=== PATIENT | male | born 1965 | race Caucasian/White ===

== ENCOUNTER 2022-04-23 16:20 | Inpatient (IN) ==
--- NOTE | 2022-04-23 16:33 | ED Triage Note ---
Date of Service April 23, 2022 History of Present Illness This patient was briefly evaluated while in triage. An abbreviated physical exam was performed. This patient is a 56-year-old Male with past medical history of hypertension who presents to the ED for evaluation of cough/illness for past 5+weeks. Had outpatient workup, CT shows extensive PE and pneumonia. He reports some shortness of breath, but denies chest pain. Denies leg pain or swelling. Physical Exam CONSTITUTIONAL: No acute distress. Well appearing. RESPIRATORY: Diminished bases, scattered wheezes more on left. Nonlabored breathing. Equal expansion bilaterally. CARDIOVASCULAR: Regular rate and rhythm with no murmurs, rubs or gallops. Normal peripheral perfusion. No peripheral edema. GASTROINTESTINAL: Soft, nontender NEUROLOGIC: Alert and oriented X 4 with normal affect. Initial orders for labs and / or imaging were placed and patient was placed in the waiting area until a bed is available. Please see further documentation for the full ED course.
[2022-04-23 18:03] LABS: Hematocrit (blood only) 47.6 % (42.0-52.0); Hemoglobin 15.5 g/dl (14.0-18.0); Mean Corpuscular Hemoglobin 29.6 pg (25.0-34.0); Mean Corpuscular Hgb Conc 32.6 g/dL (32.0-36.0); Mean Platelet Volume 8.8 fL (9.4-12.4); Platelet Count 258 K/uL (130-400); RDW Coefficient of Variation 13.2 % (11.5-14.5); RDW Standard Deviation 44.2 fL (36.4-46.3); Red Blood Count 5.23 M/uL (4.70-6.10)
[2022-04-23 18:18] LABS: Albumin Globulin Ratio 1.1 (0.9-2); Albumin Level 4.5 gm/dl (3.4-5.0); BUN Creatinine Ratio 23.3 (10-20); Bilirubin,Total 0.6 mg/dl (0.2-1.0); Calcium 10.5 mg/dl (8.5-10.1); Creatinine Clr Calc Pharmacy 73.2 ml/min; Est GFR (African American) 68.3 ml/min; Est GFR (Non-African American) 58.9 ml/min; Globulin 4.1 gm/dl (2.5-4.0); Potassium 4.6 mmol/L (3.5-5.1); Total Protein 8.6 gm/dl (6.0-8.3)
[2022-04-23 18:20] LABS: Influenza A virus by PCR Negative (Neg); Influenza B virus by PCR Negative (Neg); RSV by PCR Negative (Neg); SARS CoV2 RNA(COVID-19) Ceph NEGATIVE (Negative)
[2022-04-23 18:39] LABS: Partial Thromboplastin Time 28.8 Seconds (21.0-31.0); Prothrombin Time 10.3 Seconds (9.0-12.0)
--- NOTE | 2022-04-23 18:42 | XRay Report ---
XR chest 1V portable HISTORY: Chest pain, nonspecific COMPARISON: Chest CTA 04/23/2022. FINDINGS: No pneumothorax. No pleural effusions. The cardiac silhouette is normal in size. There are patchy bibasilar airspace opacities again noted. The upper lung zones are clear. No evidence for pulm onary edema. IMPRESSION: No change in the patchy bibasilar airspace opacities. This could be due to the patient's known pulmon miguelina emboli or a pneumonia. ACT 112: Negative or not required by law. Electronically signed by: Juan David Phillip M.D. 04/23/2022 6:41 PM
--- NOTE | 2022-04-23 18:53 | Emergency Department Note ---
History of Present Illness General Chief complaint: Illness Stated complaint: BLOODCLOT IN LING Time Seen by Provider: 04/23/22 18:35 Source: patient, RN notes reviewed and old records reviewed Mode of arrival: ambulatory Limitations: no limitations History of Present Illness This patient comes in after being diagnosed with bilateral PEs. He started getting sick about 4 and half weeks ago he had fever chills headache in his right sikhism he was COVID and flu test that was negative he continued with temporal headache and had a high sed rates and a temporal artery biopsy and started on steroids he says everything is gotten better except for his cough he denies any headache or fever chills recently they have been tapering off his steroids over the weekend his cough got worse so he saw his doctor today his D- dimer was elevated so they did a CAT scan of his chest and it showed bilateral PEs. He does not feel short of breath except for when he exerts himself. Home Medications Medication Instructions Recorded Confirmed Type amlodipine 10 mg tablet 10 mg PO QAM 01/19/22 04/23/22 History hydrochlorothiazide 12.5 mg tablet 12.5 mg PO QAM 01/19/22 04/23/22 History prednisone 10 mg tablet 0 mg PO QAM 04/06/22 04/23/22 History acetaminophen 500 mg tablet 1,000 mg PO DIRECTED PRN Pain 04/23/22 04/23/22 History (Tylenol Extra Strength) azithromycin 250 mg tablet 250 mg PO DAILY cough 04/23/22 04/23/22 History fluticasone fur. 200 mcg-umeclid 1 inh inhalation DAILY 04/23/22 04/23/22 History 62.5 mcg-vilant 25 mcg inhalat.powder (Trelegy Ellipta) ibuprofen 200 mg tablet 600 mg PO DIRECTED PRN Pain 04/23/22 04/23/22 History Allergies Allergy/AdvReac Type Severity Reaction Status Date / Time Penicillins AdvReac Intermediate DIARRHEA, Verified 04/23/22 20:18 NAUSEA/VOMITING Past Med/Surg History Medical History Benign essential hypertension Cough CXR 04/06/22 - NO FINDINGS Elevated C-reactive protein (CRP) Elevated sed rate History of anesthesia problem "seems to wake up during procedures" History of COVID-19 01/06/22, home test, not hosp; cough,body aches, chills, fever, "cold" symptoms>took paxlovid for 3 days until it "made him sick">resolved. Hypoxia Plantar wart of left foot Temporal arteritis SUSPECTED, REASON FOR UPCOMING PROCEDURE HAS RHEUMATOLOGY JESSICA 04/06/22 Urinary frequency Wheeze Surgical History H/O Mohs micrographic surgery for skin cancer nose H/O sinus surgery 1982 H/O vasectomy H/O ventral hernia repair (01/30/22) Ventral hernia repair. Dr. Grewal 01/30/2022 History of knee surgery 2010 History of temporal artery biopsy (04/13/22) Right Temporal Artery Biopsy(Right) - Wolfgang Estrella, Hx of colonoscopy 2016 S/P nasal surgery 1982 Family History Mother Hypertension Cancer Breast cancer Father Rheumatic fever Sister Breast cancer Social History Smoking Status: Never smoker Second Hand Exposure: No; Do You Dip or Chew Tobacco: No; Tobacco Cessation Education Requested by Patient: No Hx Alcohol Use: No Hx Substance Use: No Preferred Language: Lithuanian Communication Ability: Effective Chart Reader Required: No Beliefs That Will Affect Care: None marital status: Current Living Situation: Family Current Living Situation Comment: lives in own home current occupational status: employed 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 How many Children do You have: 4 Other Information That Helps Us Care for You: No Feels Safe at Home: Yes Safety Concerns: Feels Safe At This Time caffeine: Yes during the past year weight has: remained stable Assistive Devices: None Review of Systems A total of 10 systems reviewed and were otherwise negative Physical Exam Vital Signs Vital Signs - 24 hr 04/23/22 16:30 04/23/22 18:30 04/23/22 18:28 Temperature 36.8 C Temperature Source Temporal Artery Scan Pulse Rate 94 H 75 80 Pulse Rate from SpO2 Sensor 78 Respiratory Rate 20 19 Respiratory Depth Normal Blood Pressure 147/101 H 158/106 H Blood Pressure Mean 116 123 Blood Pressure Position Sitting Pulse Oximetry 92 93 Oxygen Delivery Method Room Air Room Air Sepsis Recent Fever Within 48 Hours No Sepsis New/Unexplained Change in Mental Status No Sepsis Action Taken by Nursing No Action Required 04/23/22 18:30 04/23/22 19:20 04/23/22 19:30 Temperature Temperature Source Pulse Rate 80 71 68 Pulse Rate from SpO2 Sensor 79 71 68 Respiratory Rate 15 20 18 Respiratory Depth Blood Pressure 135/94 138/91 Blood Pressure Mean 107 106 Blood Pressure Position Pulse Oximetry 94 93 91 Oxygen Delivery Method Room Air Room Air Room Air Sepsis Recent Fever Within 48 Hours Sepsis New/Unexplained Change in Mental Status Sepsis Action Taken by Nursing General: Well developed well nourished in no acute distress, breathing comforta yoshi on room air. Normal speech HEENT: Normal cephalic atraumatic. Pupils are equal round and reactive to light. Extraocular movements are intact. Oropharynx is pink with moist mucous membranes. No swelling of the mouth lips or tongue. Neck: Supple with a midline trachea. No meningeal signs or stiffness, no JVD or bruits. No Stridor. Chest: Rhonchi to auscultation bilaterally. But no increased work of breathing. Heart: Regular rate and rhythm without murmurs or gallops. Abdomen: Soft nontender, nondistended without rebound guarding or rigidity. Extremities: No cyanosis clubbing or edema. No calf tenderness or assymetry Spine/Back. Non tender to palpation. No CVA tenderness Skin: Good turgor without rashes. Neurologic exam: Cranial nerves two through 12 are intact. Motor and sensation are intact and symmetrical throughout. Course Administered Medications Heparin Sodium/Dextrose (Heparin Sodium/Dextrose) 25,000 units in 500 mls @ 33 mls/hr IV .[id number] [facility]; Protocol Stop: 05/23/22 19:29 Last Admin: 04/23/22 20:50 Dose: 1,650 units/hr, 33 mls/hr Documented By: DAMON Co-signed By: KML Sodium Chloride (Nss 1000ml) 1,000 mls @ 125 mls/hr IV .Q8H [facility] Stop: 04/24/22 06:44 Last Admin: 04/23/22 23:27 Dose: 125 mls/hr Documented By: GHASSAN Discontinued Medications Heparin Sodium (Porcine) (Heparin Sod (Porcine) 1000 Unit/Ml) 1 units IV NOW ONE Stop: 04/23/22 19:24 Last Admin: 04/23/22 20:51 Dose: Not Given Documented By: DAMON Heparin Sodium (Porcine) (Heparin Ivp From [facility] Protocol (With Bolus)) 7,000 units IV NOW ONE Stop: 04/23/22 20:31 Last Admin: 04/23/22 20:50 Dose: 7,000 units Documented By: DAMON Co-signed By: ANGELA Ceftriaxone Sodium (Rocephin) 2,000 mg in 70 mls @ 140 mls/hr IV NOW STA Stop: 04/23/22 19:37 Last Infusion: 04/23/22 20:20 Dose: 0 mls/hr Documented By: Admin: 04/23/22 20:10 Dose: 140 mls/hr Documented By: DAMON Azithromycin 500 mg/ Dextrose 255 mls @ 125 mls/hr IV ONE ONE Stop: 04/24/22 01:02 Last Infusion: 04/24/22 01:48 Dose: 0 mls/hr Documented By: Admin: 04/23/22 23:28 Dose: 125 mls/hr Documented By: GHASSAN Medical Decision Making Differential Diagnosis PE, pneumonia, pneumothorax, cardiac disease, electrolyte or metabolic abnormality, sepsis, COVID Medical Records Attestation: I reviewed the patient's medical records. Laboratory Data Attestation: I reviewed the patient's lab results. 04/23/22 17:29 04/23/22 17:29 Lab Results 04/23/22 04/23/22 04/23/22 Range/Units 17:29 17:29 17:29 WBC 13.70 H (4.8-10.8) K/ul RBC 5.23 (4.70-6.10) M/uL Hgb 15.5 (14.0-18.0) g/dl Hct 47.6 (42.0-52.0) % MCV 91.0 (80.0-100.0) fL MCH 29.6 (25.0-34.0) pg MCHC 32.6 (32.0-36.0) g/dL RDW Std Deviation 44.2 (36.4-46.3) fL RDW Coeff of Jenna 13.2 (11.5-14.5) % Plt Count 258 (130-400) K/uL MPV 8.8 L (9.4-12.4) fL Immature Gran % (Auto) 1.2 % Neut % (Auto) 90.2 % Lymph % (Auto) 5.0 % [place] % (Auto) 3.5 % Eos % (Auto) 0.0 % Baso % (Auto) 0.1 % Neut # (Auto) 12.36 H (1.40-6.50) K/uL Lymph # (Auto) 0.68 L (1.2-3.4) K/uL [place] # (Auto) 0.48 (0.11-0.59) K/uL Eos # (Auto) 0.00 (0-0.50) K/uL Baso # (Auto) 0.02 (0-0.2) K/uL Immature Gran # (Auto) 0.16 (0.01-0.20) K/uL PT 10.3 (9.0-12.0) Seconds INR 1.0 (0.9-1.1) APTT 28.8 (21.0-31.0) Seconds PTT Ratio 1.0 Sodium 139 (136-145) mmol/L Potassium 4.6 (3.5-5.1) mmol/L Chloride 105 (98-107) mmol/L Carbon Dioxide 26 (21-32) mmol/L Anion Gap 8 (3-11) BUN 31 H (6-23) mg/dl Creatinine 1.33 (0.6-1.4) mg/dl Est Cr Clr Drug Dosing 73.2 ml/min Est GFR ( Amer) 68.3 ml/min Est GFR (Non-Af Amer) 58.9 ml/min BUN/Creatinine Ratio 23.3 H (10-20) Glucose 105 H (70-99(Fasting)) mg/dl Calcium 10.5 H (8.5-10.1) mg/dl Phosphorus 3.0 (2.5-4.9) mg/dl Magnesium 2.2 (1.7-2.4) mg/dl Total Bilirubin 0.6 (0.2-1.0) mg/dl AST 20 (13-39) U/L ALT 29 (7-52) U/L Alkaline Phosphatase 60 (34-104) U/L Troponin I High Sens 10.0 (0-20) pg/ml Total Protein 8.6 H (6.0-8.3) gm/dl Albumin 4.5 (3.4-5.0) gm/dl Globulin 4.1 H (2.5-4.0) gm/dl Albumin/Globulin Ratio 1.1 (0.9-2) Lipase 69 (11-82) U/L Imaging Data Attestation: I personally reviewed and interpreted this imaging study as follows: My Impression: Chest x-raythere are some bibasilar patchy opacities but no pneumothorax or CHF Radiologist's Impression: Chest X-Ray 04/23/22 16:35 XR chest 1V portable HISTORY: Chest pain, nonspecific COMPARISON: Chest CTA 04/23/2022. FINDINGS: No pneumothorax. No pleural effusions. The cardiac silhouette is normal in size. There are patchy bibasilar airspace opacities again noted. The upper lung zones are clear. No evidence for pulmonary edema. IMPRESSION: No change in the patchy bibasilar airspace opacities. This could be due to the patient's known pulmonary emboli or a pneumonia. ACT 112: Negative or not required by law. Electronically signed by: Juan David Phillip M.D. 04/23/2022 6:41 PM ECG Data Attestation: I personally reviewed and interpreted this ECG as follows: Indication: + chest pain Rate (beats per minute): 88 Rhythm: + normal sinus and + other (Poor baseline) ECG Intervals/blocks: + Normal QRS, + Normal QT and + Normal LA ECG Reeders: + Normal ECG ST segments: + Normal ST segments ECG Findings: + LVH; no PACs or no PVCs Comparison ECG Date: from (12/14/21) Change: no significant change MDM Narrative This patient comes in as described above. He was placed in room C10. Here for treatment and evaluation of bilateral PEs he looks well and is nonhypoxemic. I reviewed his work-up. He will need to come in. His EKG does not suggest any ischemic changes of white count is mildly elevated is possible he could have a pneumonia on top of this as well. He has multiple PEs otherwise been hemodynamically stable. I did order IV heparin bolus and hourly rate of heparin. I also ordered Rocephin for possible pneumonia as well. I did consult and further discussed the case with Dr. Montgomery who is the hospitalist and she saw the patient ER will be admitting for further inpatient treatment evaluation of his PE and pneumonia Continuous residential monitor: Orders placed in EMR for continuous residential monitor. Upon my evaluation the patient was reviewed normal sinus with a rate of 90. Impression & Plan Bilateral pulmonary embolism, Cough, Pneumonia, Lab test negative for COVID-19 virus Discharge Plan Visit Data Chief Complaint: Illness Stated Complaint: BLOODCLOT IN LING ED Provider: Puma Thomson Discharge Problem: Bilateral pulmonary embolism, Cough, Pneumonia, Lab test negative for COVID-19 virus Patient Disposition: Admitted As Inpatient Discharge Instructions Interventions: ED Discharge Assessment Last Done: 04/23/22 21:43 Cough Qualifiers: Cough type: subacute Qualified Code(s): R05.2 - Subacute cough Pneumonia Qualifiers: Pneumonia type: due to unspecified organism Laterality: unspecified laterality Lung location: unspecified part of lung Qualified Code(s): J18.9 - Pneumonia, unspecified organism
[2022-04-23] MEDS ORDERED: Heparin IV Adult Wt-Based Standard WITH Bolus Protocol IV STA (19:08)
[2022-04-23] MEDS ORDERED: cefTRIAXone SODIUM 2,000 MG/70 ML BAG IV STA (19:08)
[2022-04-23 19:16] LABS: Basophils # (auto) 0.02 K/uL (0-0.2); Basophils % (auto) 0.1 %; Immature Granulocytes # (auto) 0.16 K/uL (0.01-0.20); Immature Granulocytes % (auto) 1.2 %; Lymphocytes # (auto) 0.68 K/uL (1.2-3.4); Monocytes # (auto) 0.48 K/uL (0.11-0.59); Monocytes % (auto) 3.5 %; Neutrophils # (auto) 12.36 K/uL (1.40-6.50); Neutrophils % (auto) 90.2 %
[2022-04-23] MEDS ORDERED: HEPARIN SOD (PORCINE) 1000 UNIT/ML IV ONE (19:23)
--- NOTE | 2022-04-23 20:19 | History & Physical Report ---
Date of Service April 23, 2022 Assessment & Plan (1) Pulmonary emboli: Plan: Chino Moulton is a 56yo male with history of HTN presenting with extensive segmental and subsegmental PE in the right upper, middle and lower lobe pulmonary arteries and segmental PEs in the lingula. Patient presently HD stable, adequate oxygenation on room air. He has cough and pleuritic chest pain which has been improved with Tylenol and Ibuprofen at home. PESI score = 67 - Class II, Low risk. Normal shock index. Saturation is borderline low at 91% on room air. -Admit to medical with telemetry -Check 2D echo -Continue Heparin gtt -Tylenol as needed for pain -Robitussin as needed for cough (2) Pneumonia: Plan: Patient with dense LLL consolidation concerning for PNA - no PE at that location. He is presently afebrile. Mild leukocytosis - patient has been on Prednisone, however. No recent hospitalizations. -Ceftriaxone 2gm IV daily -Azithromycin -Robitussin as needed -Tylenol as needed -Incentive spirometry q1hr PRN (3) Hypertension: Plan: Blood pressure well controlled, presently 138/91 -Continue Amlodipine -Hold HCTZ as patient appears dry on labs -NSS at 125mL/hr x 1 liter -Encourage PO intake F/E/N - NSS at 125mL/hr x 1L, check Mg and PO4 x 1 and replete as needed Ppx - Heparin gtt Code - Full Disp - Med Tele History of Present Illness Chief Complaint: cough, PATEL Primary Care Provider: Ruy Dye MD Chino Moulton is a 56yo male with history of HTN presenting with pulmonary emboli and concern for pneumonia. Patient began feeling ill on March 26. He had a fever, headache, nasal congestion, mild cough, body aches and nausea. He contacted his PCP and had Covid and Flu testing which was NEGATIVE. His cough worsened over the next 2-3 days. He then developed a severe right sided temporal headache. He had an ESR performed which was elevated at 71. Due to concern for possible temporal arteritis, he was seen by Rheumatology and had a right temporal artery biopsy performed on 04/13/22 which was NEGATIVE. Patient was started on a 60mg Prednisone taper. His cough subsequently worsened. He reports that over the last several days he has been coughing a lot more. The cough is moist and he is bringing up some yellow sputum. He has some pleuritic chest pain as well as some back pain associated with the cough. He reports dyspnea on exertion. He notified his PCP today 04/23/22 and was found to have an elevated D-dimer. He had a CTA of the chest performed outpatient which revealed fairly extensive segmental and subsegmental PE in right upper, middle and lower lobe pulmonary arteries as well as segmental PE in the branches of the lingula. The CT also noted dense left basilar airspace consolidation. Patient presently reports that the nausea, PATRICIO and congestion have largely resolved. He has not had a fever for over two weeks. He has no chest pain or syncope. In the ER he is afebrile, HD stable. Blood pressure has been 119-158 / 80-106, stable respiratory status with saturations ranging 90-94% on room air. ER Course: Heparin bolus and drip ordered - not yet initiated Ceftriaxone 2gm IV - not yet given Allergies Allergy/AdvReac Type Severity Reaction Status Date / Time Penicillins AdvReac Intermediate DIARRHEA, Verified 04/23/22 20:18 NAUSEA/VOMITING Home Medications Medication Instructions Recorded Confirmed Type amlodipine 10 mg tablet 10 mg PO QAM 01/19/22 04/23/22 History hydrochlorothiazide 12.5 mg tablet 12.5 mg PO QAM 01/19/22 04/23/22 History prednisone 10 mg tablet 0 mg PO QAM 04/06/22 04/23/22 History Unknown Steroid Inhaler 1 inh inhalation DIRECTED 04/23/22 04/23/22 History acetaminophen 500 mg tablet 1,000 mg PO DIRECTED PRN Pain 04/23/22 04/23/22 History (Tylenol Extra Strength) azithromycin 250 mg tablet 250 mg PO DAILY cough 04/23/22 04/23/22 History ibuprofen 200 mg tablet 600 mg PO DIRECTED PRN Pain 04/23/22 04/23/22 History Past Med/Surg History Medical History Benign essential hypertension Cough CXR 04/06/22 - NO FINDINGS Elevated C-reactive protein (CRP) Elevated sed rate History of anesthesia problem "seems to wake up during procedures" History of COVID-19 01/06/22, home test, not hosp; cough,body aches, chills, fever, "cold" symptoms>took paxlovid for 3 days until it "made him sick">resolved. Hypoxia Plantar wart of left foot Temporal arteritis SUSPECTED, REASON FOR UPCOMING PROCEDURE HAS RHEUMATOLOGY JESSICA 04/06/22 Urinary frequency Wheeze Surgical History H/O Mohs micrographic surgery for skin cancer nose H/O sinus surgery 1982 H/O vasectomy H/O ventral hernia repair (01/30/22) Ventral hernia repair. Dr. Grewal 01/30/2022 History of knee surgery 2010 History of temporal artery biopsy (04/13/22) Right Temporal Artery Biopsy(Right) - Wolfgang Estrella DO Hx of colonoscopy 2016 S/P nasal surgery 1982 Family History Mother Hypertension Cancer Breast cancer Father Rheumatic fever Sister Breast cancer Social History Smoking Status: Never smoker Second Hand Exposure: No; Hx Alcohol Use: No Hx Substance Use: No Preferred Language: Niuean Communication Ability: Effective Tool And [employer] Supervisor Required: No Beliefs That Will Affect Care: None marital status: Current Living Situation: Spouse and Family Current Living Situation Comment: spouse, son and daughter current occupational status: employed 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 How many Children do You have: 4 Feels Safe at Home: Yes caffeine: Yes during the past year weight has: remained stable Assistive Devices: Glasses Review of Systems Review of Systems: All systems reviewed & are unremarkable except as noted in HPI & below Physical Exam Physical Exam: General: patient resting comfortably, NAD, non-toxic in appearance, AA&O x 4 Skin: warm, dry, intact, no rashes or lesions HEENT: NC/AT, PERRL, EOMI, anicteric sclera, conjunctiva without injection, external ear normal to inspection and nontender, nares patent, moist mucus membranes, dentition intact, no oropharyngeal lesions, neck supple, trachea midline, no LAD, no thyromegaly, no JVD Heart: +S1/S2, regular, no m/r/g Lungs: equal air entry bilaterally, coarse breath sounds anteriorly with diminished in left base Abd: +BS, soft, NT/ND, no masses/organomegaly/ascites Ext: warm, 2+ pulses in UE/LE bilaterally, no clubbing/cyanosis or edema Neuro: nonfocal, patient AA&O x 4, speech intact, no facial droop, moving all extremities on command with equal strength 5/5 Results & Data Results & Data ([facility]) Vital Signs (Past 12 Hours) Vital Signs Temp Pulse Resp BP Pulse Ox O2 Del Method 04/23/22 19:30 68 18 138/91 91 Room Air 04/23/22 19:20 71 20 135/94 93 Room Air 04/23/22 18:30 80 15 94 Room Air 04/23/22 18:28 80 19 158/106 H 93 Room Air 04/23/22 18:30 75 04/23/22 16:30 36.8 C 94 H 20 147/101 H 92 Room Air Laboratory Results Laboratory Results WBC 13.70 K/ul (4.8-10.8) H 04/23/22 17: RBC 5.23 M/uL (4.70-6.10) 04/23/22 17: Hgb 15.5 g/dl (14.0-18.0) 04/23/22 17: Hct 47.6 % (42.0-52.0) 04/23/22 17: MCV 91.0 fL (80.0-100.0) 04/23/22 17: MCH 29.6 pg (25.0-34.0) 04/23/22 17: MCHC 32.6 g/dL (32.0-36.0) 04/23/22 17:29 RDW Std Deviation 44.2 fL (36.4-46.3) 04/23/22 17: RDW Coeff of Jenna 13.2 % (11.5-14.5) 04/23/22 17: Plt Count 258 K/uL (130-400) 04/23/22 17: MPV 8.8 fL (9.4-12.4) L 04/23/22 17: Immature Gran % (Auto) 1.2 % 04/23/22 17: Neut % (Auto) 90.2 % 04/23/22 17: Lymph % (Auto) 5.0 % 04/23/22: Hughes % (Auto) 3.5 % 04/23/22 17: Eos % (Auto) 0.0 % 04/23/22 17: Baso % (Auto) 0.1 % 04/23/22 17: Neut # (Auto) 12.36 K/uL (1.40-6.50) H 04/23/22 17: Lymph # (Auto) 0.68 K/uL (1.2-3.4) L 04/23/22: Hughes # (Auto) 0.48 K/uL (0.11-0.59) 04/23/22: Eos # (Auto) 0.00 K/uL (0-0.50) 04/23/22: Baso # (Auto) 0.02 K/uL (0-0.2) 04/23/22: Immature Gran # (Auto) 0.16 K/uL (0.01-0.20) 04/23/22: PT 10.3 Seconds (9.0-12.0) 04/23/22: INR 1.0 (0.9-1.1) 04/23/22: APTT 28.8 Seconds (21.0-31.0) 04/23/22: PTT Ratio 1.0 04/23/22: Sodium 139 mmol/L (136-145) 04/23/22: Potassium 4.6 mmol/L (3.5-5.1) 04/23/22: Chloride 105 mmol/L (98-107) 04/23/22: Carbon Dioxide 26 mmol/L (21-32) 04/23/22: Anion Gap 8 (3-11) 04/23/22 17: BUN 31 mg/dl (6-23) H 04/23/22: Creatinine 1.33 mg/dl (0.6-1.4) 04/23/22 17: Est Cr Clr Drug Dosing 73.2 ml/min 04/23/22 17: Est GFR ( Amer) 68.3 ml/min 04/23/22 17: Est GFR (Non-Af Amer) 58.9 ml/min 04/23/22 17: BUN/Creatinine Ratio 23.3 (10-20) H 04/23/22 17:29 Glucose 105 mg/dl (70-99(Fasting)) H 04/23/22 17:29 Calcium 10.5 mg/dl (8.5-10.1) H 04/23/22 17:29 Total Bilirubin 0.6 mg/dl (0.2-1.0) 04/23/22 17:29 AST 20 U/L (13-39) 04/23/22 17:29 ALT 29 U/L (7-52) 04/23/22 17:29 Alkaline Phosphatase 60 U/L (34-104) 04/23/22 17:29 Troponin I High Sens 10.0 pg/ml (0-20) 04/23/22 17:29 Total Protein 8.6 gm/dl (6.0-8.3) H 04/23/22 17:29 Albumin 4.5 gm/dl (3.4-5.0) 04/23/22 17:29 Globulin 4.1 gm/dl (2.5-4.0) H 04/23/22 17:29 Albumin/Globulin Ratio 1.1 (0.9-2) 04/23/22 17:29 Lipase 69 U/L (11-82) 04/23/22 17:29 SARS-CoV-2 (PCR) NEGATIVE (Negative) 04/23/22 Unknown Influenza Type A (PCR) Negative (Neg) 04/23/22 Unknown Influenza Type B (PCR) Negative (Neg) 04/23/22 Unknown RSV (RT-PCR) Negative (Neg) 04/23/22 Unknown Impressions Chest X-Ray 04/23/22 16:35 XR chest 1V portable HISTORY: Chest pain, nonspecific COMPARISON: Chest CTA 04/23/2022. FINDINGS: No pneumothorax. No pleural effusions. The cardiac silhouette is normal in size. There are patchy bibasilar airspace opacities again noted. The upper lung zones are clear. No evidence for pulmonary edema. IMPRESSION: No change in the patchy bibasilar airspace opacities. This could be due to the patient's known pulmonary emboli or a pneumonia. ACT 112: Negative or not required by law. Electronically signed by: Juan David Phillip M.D. 04/23/2022 6:[address] ANGIOGRAM OF THE CHEST CLINICAL HISTORY: Hypoxia COMPARISON STUDY: No priors. TECHNIQUE: Following the IV administration of 116 cc of Optiray 320, CT angiogram of the chest was performed from the upper abdomen to the thoracic inlet utilizing the pulmonary embolus protocol. Images are reviewed in the axial, sagittal, and coronal planes. 3-D MIPS images are created and assessed. IV contrast was administered without complication. A dose lowering technique was utilized adhering to the principles of ALARA. CT DOSE: 450.27 mGy.cm FINDINGS: Thyroid: Imaged portions of the thyroid gland are normal in size and attenuation. Thoracic aorta: The thoracic aorta is normal in caliber and demonstrates standard 3-vessel arch anatomy. No dissection is seen. Pulmonary vasculature: The pulmonary trunk is normal in caliber. There are segmental and subsegmental pulmonary emboli within branches of the right upper, middle, and lower lobe pulmonary arteries. There also segmental parenchymal or within branches of the lingular pulmonary artery. Heart: The heart is top normal in size and without pericardial effusion. Lungs and pleural spaces: There is dense left lower lobe airspace consolidation. Minimal patchy consolidation is seen in the right lower lobe. The trachea and central airways are clear. No pleural effusion is identified. Mediastinum: There is no mediastinal lymphadenopathy. Heidi: Clear. Axillae: There is no axillary lymphadenopathy. Upper abdomen: A 1.8 cm cyst is noted in the right lobe of the liver. There is a tiny hiatal hernia. Skeletal structures: No lytic or blastic bony lesions are seen. IMPRESSION: 1. Fairly extensive segmental and subsegmental pulmonary emboli RCA within branches of the right upper, middle, and lower lobe pulmonary arteries. 2. There are also segmental pulmonary emboli within branches of the lingula. 3. There is dense left basilar airspace consolidation. No left lower lobe pulmonary emboli are identified and pneumonia is favored. Clinical correlation will be required and radiographic follow-up to resolution is limited. 4. Mild patchy airspace opacities are also seen in the right lower lobe. 5. No pleural effusion is seen. 6. Additional findings as above. ACT 112: Negative or not required by law. Electronically signed by: Ruy Samuel M.D. 04/23/2022 4:04 PM Dictated:04/23/22 1557 Transcribed: 04/23/22 155 Code Status & VTE Plan VTE Prophylaxis Plan VTE Prophylaxis will be ordered: Yes PG Care Time/CCT Total # of Minutes Spent Total Time Spent with Patient: Total time spent is greater than 50% in coordination of care (as documented) at patient's floor/unit and/or counseling patient: Coding Level of Care Code 25527 INT INP/OBS CARE 3/75MIN Diagnoses Pulmonary emboli I26.99 Pneumonia J18.9 Hypertension I10
[2022-04-23] MEDS ORDERED: Heparin IVP from UFH Protocol (WITH Bolus) IV ONE (20:30)
[2022-04-23] MEDS: HEPARIN SODIUM/DEXTROSE 25,000 UNITS/500 ML BAG IV SCH (20:50)
[2022-04-23] MEDS ORDERED: ACETAMINOPHEN 500 MG TAB PO PRN (22:12)
[2022-04-23] MEDS ORDERED: ONDANSETRON INJ 2 MG/ML 2 ML VIAL IV PRN (22:12)
[2022-04-23] MEDS ORDERED: guaiFENesin/DEXTROM SYRUP 200MG/20MG 10ML UDC PO PRN (22:12)
[2022-04-23 22:45] LABS: Magnesium 2.2 mg/dl (1.7-2.4)
[2022-04-23] MEDS ORDERED: SODIUM CHLORIDE 0.9% 1000ML 1,000 ML IV SCH (22:45)
[2022-04-23] MEDS ORDERED: cefTRIAXone SODIUM 2,000 MG in DEXTROSE 5% 50 ML IV SCH (23:00)
[2022-04-23] MEDS ORDERED: AZITHROMYCIN 500 MG in DEXTROSE 5% 250 ML IV ONE (23:00)
[2022-04-24 03:36] LABS: Hematocrit (blood only) 37.7 % (42.0-52.0); Hemoglobin 12.7 g/dl (14.0-18.0); Mean Corpuscular Hemoglobin 30.4 pg (25.0-34.0); Mean Corpuscular Hgb Conc 33.7 g/dL (32.0-36.0); Mean Corpuscular Volume 90.2 fL (80.0-100.0); Mean Platelet Volume 8.9 fL (9.4-12.4); Platelet Count 209 K/uL (130-400); RDW Coefficient of Variation 13.2 % (11.5-14.5); RDW Standard Deviation 43.4 fL (36.4-46.3); Red Blood Count 4.18 M/uL (4.70-6.10); White Blood Count 13.08 K/ul (4.8-10.8)
[2022-04-24 03:59] LABS: BUN Creatinine Ratio 23.8 (10-20); Creatinine Clr Calc Pharmacy 96.4 ml/min; Est GFR (African American) 95.3 ml/min; Est GFR (Non-African American) 82.2 ml/min; Potassium 3.4 mmol/L (3.5-5.1)
[2022-04-24 04:17] LABS: Partial Thromboplastin Ratio 3.2
[2022-04-24 04:51] LABS: Partial Thromboplastin Time 88.1 Seconds (21.0-31.0)
--- NOTE | 2022-04-24 07:32 | Hospitalist Progress Note ---
Date of Service April 24, 2022 Assessment & Plan (1) Pulmonary emboli: Plan: Chino Moulton is a 56yo male with history of HTN presenting with extensive segmental and subsegmental PE in the right upper, middle and lower lobe pulmonary arteries and segmental PEs in the lingula. Patient presently HD stable, adequate oxygenation on room air. He has cough and pleuritic chest pain which has been improved with Tylenol and Ibuprofen at home. PESI score = 67 - Class II, Low risk. Normal shock index. Hemodynamically stable. -Echo with grade I diastolic dysfunction, no signs of right heart strain -Transition from heparin drip to Eliquis - No clear provoking factors. Some concern for underlying vasculitis due to constellation of recent symptoms. Rheumatology saw him recently for temporal artery biopsy, consulted and will see in IP. - Hypercoagulability labs ordered. Duplex US of LE pending. (2) Pneumonia: Plan: Patient with dense LLL consolidation concerning for PNA - no PE at that location. He is presently afebrile. Mild leukocytosis - patient has been on Prednisone, however. No recent hospitalizations. -Ceftriaxone 2gm IV daily; will transition to Augmentin -Azithromycin -Robitussin as needed -Tylenol as needed -Incentive spirometry q1hr PRN (3) Hypertension: Plan: Blood pressure well controlled, presently 138/91 -Continue Amlodipine -HCTZ held F/E/N - NSS at 125mL/hr x 1L, check Mg and PO4 x 1 and replete as needed Ppx - Eliquis Code - Full Disp - Med Tele Admission and Anticipated Discharge Date Admission Date: April 23, 2022 Supervising Physician Co-Signing Physician Notes Attending attestation Pt seen and examined in concert with Dr. Guillermo. In agreement with the documented findings as noted in the resident documentation with any exceptions or additions as noted here. Walking around the floors without significant shortness of breath. Some mild bilateral aching pain of the lower back c/w postural MSK pain which is acute on chronic. On examination, S1/S2 nl RRR no MCG. Decreased breath sounds of the left lower lung manjarrez c/w consolidation on imaging. Abd NT/ND BS+ve Pulmonary emboli, multiple subsegmental - echocardiogram reviewed - transition to DOAC. Concern for vascular pathology in the setting of recent elevated ESR, concern for temporal arteritis w/ negative Bx and +ve SANTOS from 2019 prompting rh eumatology consultation. Hypercoag w/u ordered. Pneumonia in the setting of PE - transition to PO augmentin and azithromycin to complete course. Else see resident documentation as noted. Subjective Doing well today without any complaints. States that his pleuritic pain has improved. Still has a cough non productive, but improving. Does note some low back pain, which has been a chronic issue for him. He states that he is up to date on his colonoscopy. Denies family or personal history of blood clots. Denies prolonged period of immobilzation. Review of Systems Review of Systems: As per above Physical Exam Physical Exam: Constitutional: well-appearing, no acute distress HEENT: NCAT, no conjunctival injection CV: regular rhythm, no murmur appreciated, extremities well-perfused, no LE edema Resp: Decreased breath sounds of left lower lobe GI: soft, nondistended, nontender, BS normoactive MSK: no gross deformities appreciated Skin: warm, dry, no rash appreciated Neuro: alert, oriented, no focal neurologic deficit appreciated Results & Data Results & Data ([facility]) Vital Signs (Past 12 Hours) Vital Signs Temp Pulse Pulse Resp BP BP BP 04/24/22 07:17 36.8 C 69 18 122/82 04/24/22 02:49 37.1 C 74 18 127/72 04/24/22 02:49 86 04/24/22 00:31 04/23/22 22:12 04/23/22 22:12 36.9 C 101 H 18 149/85 H 04/23/22 21:53 36.9 C 101 H 18 149/85 H 04/23/22 21:43 04/23/22 21:30 71 16 122/86 04/23/22 21:00 105 H 18 149/99 H 04/23/22 20:30 75 20 135/95 04/23/22 20:00 75 19 135/96 Pulse Ox O2 Del Method O2 Flow Rate 04/24/22 07:17 93 Room Air 04/24/22 02:49 92 Nasal Cannula 2 04/24/22 02:49 04/24/22 00:31 Nasal Cannula 2 04/23/22 22:12 Nasal Cannula 2 04/23/22 22:12 93 Nasal Cannula 2 04/23/22 21:53 93 Room Air 04/23/22 21:43 Room Air 04/23/22 21:30 94 Room Air 04/23/22 21:00 91 Room Air 04/23/22 20:30 94 Room Air 04/23/22 20:00 94 Room Air Resident Activity Tracking Resident Involvement: Resident Care Provided Care Provided: Adult Hospital Medicine
[2022-04-24] MEDS: amLODIPine BESYLATE 5 MG TAB PO SCH (08:26)
[2022-04-24] MEDS: predniSONE 10 MG TABLET PO SCH (08:26)
--- NOTE | 2022-04-24 10:39 | Electrocardiogram Report ---
Test Reason : Blood Pressure : / mmHG Vent. Rate : 088 BPM Atrial Rate : 088 BPM P-R Int : 140 ms QRS Dur : 078 ms QT Int : 336 ms P-R-T Axes : 031 -12 020 degrees QTc Int : 406 ms Poor data quality, interpretation may be adversely affected Normal sinus rhythm Moderate voltage criteria for LVH, may be normal variant Borderline ECG When compared with ECG of 14-DEC-2021 14:06, No significant change was found Confirmed by Mainor Bell ([id number]) on 04/24/2022 10:39:23 AM Referred By: Ruy Dye Confirmed By:Patrick Bell
--- NOTE | 2022-04-24 12:01 | XCELERA ---
[id number]
[2022-04-24 13:13] LABS: Partial Thromboplastin Ratio 2.2
[2022-04-24 13:36] LABS: Partial Thromboplastin Time 60.6 Seconds (21.0-31.0)
[2022-04-24] MEDS: HEPARIN SODIUM/DEXTROSE 25,000 UNITS/500 ML BAG IV SCH (14:47)
--- NOTE | 2022-04-24 17:06 | Rheumatology Consultation ---
Rheumatology Consultation DOS April 24, [address] Amee Guillermo Attending Physician Dr. Del Cid Reason for Consultation Concern for vasculitis Assessment & Plan (1) SANTOS positive: (2) Pneumonia: (3) Pulmonary emboli: Plan Patient with recent headache syndrome and elevated inflammatory markers. Temporal artery biopsy obtained on 04/13/2022 negative for giant cell arteritis and symptomatology leading up to his presentation in late March not entirely consistent with a GCA pattern. Therefore, more aggressive prednisone taper was initiated. Patient reports becoming mildly symptomatic from a chest standpoint a few days after starting steroids and the symptoms became more prominent after his biopsy leading to presentation to Dr. Dye's office on 04/23. Currently, I do not identify features consistent with an active, systemic vasculitis. Therefore, no indication to pursue IV Solu-Medrol or immunosuppress yoana therapy such as rituximab. We will, however, need to monitor his right lung field findings to ensure resolution. I do not identify via history features of hemoptysis, nasal crusting, bloody noses, etc. that would often accompany a pulmonary vasculitis at this time but we will need to ensure resolution with the right lung field findings seen on imaging. Outpatient follow-up imaging with Dr. Dye or me can be pursued. Regarding his positive SANTOS, I do not identify features consistent with an SANTOS associated connective tissue disorder and we do not have any evidence of active vasculitis currently that could be a potential manifestation of lupus. Antiphospholipid antibodies can be associated with a positive SANTOS and I recommend obtaining these (lupus anticoagulant, beta-2 glycoprotein, and cardiolipin antibody) if not already in process with the hypercoagulable work- up. Please reach out with any questions or concerns. Recommend close hospital follow-up with Dr. Dye to assist with following up pulmonary imaging to ensure resolution of right lung field findings. Portions of this note were generated with [employer] voice recognition software. History of Present Illness Attending Physician: Sonny Del Cid MD History of Present Illness This is a 56-year-old male who presents with recent cough and shortness of breath. He was evaluated by his primary care provider on 04/23 and outpatient blood work revealed significantly elevated D-dimer. Patient was then directed to report to the ER at which time he was found to have significant pulmonary emboli as well as consolidation raising concern for pneumonia. He was in his usual state of health until mid-to-late March at which time he began having URI symptoms followed by intense headache. Inflammatory markers were significantly elevated and out of concern for possible giant cell arteritis, steroids were initiated and temporal artery biopsy was pursued and completed on 04/13/2022. Soon after starting steroids, the patient began having some sensation of chest fullness and congestion. He had a chest x-ray on 04/06/2022 that did not reveal any infiltrative process. His indicates that he was coughing a lot on 04/13 and she had concerns that the biopsy would even be delayed. Coughing and shortness of breath got very bad on 04/22 prompting the appointment with his primary care provider on 04/23. Currently, headache is gone. He denies history consistent with jaw claudication. He reports his cough is essentially nonproductive and when he does have very slight productivity, he denies hemoptysis. Denies bloody nose or nasal crusting. Denies any dark urine. Denies oral sores or ulcerations. Denies photosensitive rashes. Denies skin tightening or skin thickening. Denies history consistent with Raynaud's. Denies a prior history of thromboembolic events. He has had some dry mouth since his cough began which is more noticeable at nighttime. He denies joint swelling. Denies history consistent with distal fingertip ulcerations. Denies any additional skin rashes. Denies a history consistent with uveitis. Denies joint swelling. He has had some back discomfort, lower back which is more noticeable with cough. He denies fevers. Allergies Allergy/AdvReac Type Severity Reaction Status Date / Time Penicillins AdvReac Intermediate DIARRHEA, Verified 04/23/22 20:18 NAUSEA/VOMITING Home Medications Medication Instructions Recorded Confirmed Type amlodipine 10 mg tablet 10 mg PO QAM 01/19/22 04/23/22 History hydrochlorothiazide 12.5 mg tablet 12.5 mg PO QAM 01/19/22 04/23/22 History prednisone 10 mg tablet 0 mg PO QAM 04/06/22 04/23/22 History acetaminophen 500 mg tablet 1,000 mg PO DIRECTED PRN Pain 04/23/22 04/23/22 History (Tylenol Extra Strength) azithromycin 250 mg tablet 250 mg PO DAILY cough 04/23/22 04/23/22 History fluticasone fur. 200 mcg-umeclid 1 inh inhalation DAILY 04/23/22 04/23/22 Hist ory 62.5 mcg-vilant 25 mcg inhalat.powder (Trelegy Ellipta) ibuprofen 200 mg tablet 600 mg PO DIRECTED PRN Pain 04/23/22 04/23/22 History Patient History Medical History Benign essential hypertension Cough CXR 04/06/22 - NO FINDINGS Elevated C-reactive protein (CRP) Elevated sed rate History of anesthesia problem "seems to wake up during procedures" History of COVID-19 01/06/22, home test, not hosp; cough,body aches, chills, fever, "cold" symptoms>took paxlovid for 3 days until it "made him sick">resolved. Hypoxia Plantar wart of left foot Temporal arteritis SUSPECTED, REASON FOR UPCOMING PROCEDURE HAS RHEUMATOLOGY JESSICA 04/06/22 Urinary frequency Wheeze Surgical History H/O Mohs micrographic surgery for skin cancer nose H/O sinus surgery 1982 H/O vasectomy H/O ventral hernia repair (01/30/22) Ventral hernia repair. Dr. Grewal 01/30/2022 History of knee surgery 2010 History of temporal artery biopsy (04/13/22) Right Temporal Artery Biopsy(Right) - Wolfgang Estrella, DO Hx of colonoscopy 2016 S/P nasal surgery 1982 Family History Mother Hypertension Cancer Breast cancer Father Rheumatic fever Sister Breast cancer Social History Smoking Status: Never smoker Second Hand Exposure: No; Do You Dip or Chew Tobacco: No; Tobacco Cessation Education Requested by Patient: No Hx Alcohol Use: No Hx Substance Use: No Preferred Language: Prydeinig Communication Ability: Effective Visual Educator Required: No Beliefs That Will Affect Care: None marital status: Current Living Situation: Family Current Living Situation Comment: lives in own home current occupational status: employed 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 Denies chest pain. Positive shortness of breath and coughing but shortness of breath and cough have improved currently. Denies nausea or vomiting. Denies diarrhea or constipation. Denies dark or black stools. Denies difficulty with urination or dark urine. Denies skin rashes. Denies joint swelling. No hemoptysis. No bloody noses. No nasal crusting. Physical Exam Physical Exam: General: Alert and oriented. No acute distress Eyes: Pupils are equal. Extraocular muscles intact. Mouth: No oral sores Neck: Supple, no adenopathy Cardiovascular: Heart regular, no rubs Pulmonary: Breath sounds somewhat hyperacute with degree of crackles at left base Abdomen: Soft, nontender. Positive bowel sounds. Extremities: No pitting edema noted Skin: No purpuric lesions identified Musculoskeletal: No synovitis. No effusions. No joint erythema Results & Data ([facility]) Vital Signs (Past 12 Hours) Vital Signs Temp Pulse Pulse Resp BP Pulse Ox O2 Del Method 04/24/22 15:06 78 04/24/22 14:29 37.0 C 80 18 123/71 94 Room Air 04/24/22 11:09 75 18 131/88 97 Room Air 04/24/22 08:50 Room Air 04/24/22 08:38 69 04/24/22 07:17 36.8 C 69 18 122/82 93 Room Air Laboratory Results 2017 SANTOS: 1: 160, negative GABRIEL with normal complement levels Urinalysis: No blood or protein CBC: Reviewed, no leukopenia or thrombocytopenia Renal function intact ESR: 55 FINDINGS: Thyroid: Imaged portions of the thyroid gland are normal in size and attenuation. Thoracic aorta: The thoracic aorta is normal in caliber and demonstrates standard 3-vessel arch anatomy. No dissection is seen. Pulmonary vasculature: The pulmonary trunk is normal in caliber. There are segmental and subsegmental pulmonary emboli within branches of the right upper, middle, and lower lobe pulmonary arteries. There also segmental parenchymal or within branches of the lingular pulmonary artery. Heart: The heart is top normal in size and without pericardial effusion. Lungs and pleural spaces: There is dense left lower lobe airspace consolidation. Minimal patchy consolidation is seen in the right lower lobe. The trachea and central airways are clear. No pleural effusion is identified. Mediastinum: There is no mediastinal lymphadenopathy. Heidi: Clear. Axillae: There is no axillary lymphadenopathy. Upper abdomen: A 1.8 cm cyst is noted in the right lobe of the liver. There is a tiny hiatal hernia. Skeletal structures: No lytic or blastic bony lesions are seen. IMPRESSION: 1. Fairly extensive segmental and subsegmental pulmonary emboli RCA within branches of the right upper, middle, and lower lobe pulmonary arteries. 2. There are also segmental pulmonary emboli within branches of the lingula. 3. There is dense left basilar airspace consolidation. No left lower lobe pulmonary emboli are identified and pneumonia is favored. Clinical correlation will be required and radiographic follow-up to resolution is limited. 4. Mild patchy airspace opacities are also seen in the right lower lobe. 5. No pleural effusion is seen. 6. Additional findings as above. PG Care Time/CCT Total # of Minutes Spent Total Time Spent with Patient: Total time spent is greater than 50% in coordination of care (as documented) at patient's floor/unit and/or counseling patient: Coding Level of Care Code 43271 INT INP/OBS CARE 2/55MIN Diagnoses SANTOS positive R76.8 Pneumonia J18.9 Pulmonary emboli I26.99
[2022-04-24] MEDS ORDERED: AMOXICILLIN/CLAVULANATE 875 MG TAB PO SCH (18:00)
[2022-04-24] MEDS ORDERED: cefTRIAXone SODIUM 2,000 MG in DEXTROSE 5% 50 ML IV SCH (20:00)
[2022-04-24] MEDS: APIXABAN 5 MG TABLET PO SCH (20:24)
[2022-04-24] MEDS ORDERED: AZITHROMYCIN 250 MG TAB PO SCH (21:00)
[2022-04-24] MEDS ORDERED: AZITHROMYCIN 250 MG in DEXTROSE 5% 250 ML IV SCH (22:00)
--- NOTE | 2022-04-25 07:06 | Discharge Summary ---
Date of Service April 25, 2022 Admission HPI Per Admitting Provider Chino Moulton is a 56yo male with history of HTN presenting with pulmonary emboli and concern for pneumonia. Patient began feeling ill on March 26. He had a fever, headache, nasal congestion, mild cough, body aches and nausea. He contacted his PCP and had Covid and Flu testing which was NEGATIVE. His cough worsened over the next 2-3 days. He then developed a severe right sided temporal headache. He had an ESR performed which was elevated at 71. Due to concern for possible temporal arteritis, he was seen by Rheumatology and had a right temporal artery biopsy performed on 04/13/22 which was NEGATIVE. Patient was started on a 60mg Prednisone taper. His cough subsequently worsened. He reports that over the last several days he has been coughing a lot more. The cough is moist and he is bringing up some yellow sputum. He has some pleuritic chest pain as well as some back pain associated with the cough. He reports dyspnea on exertion. He notified his PCP today 04/23/22 and was found to have an elevated D-dimer. He had a CTA of the chest performed outpatient which revealed fairly extensive segmental and subsegmental PE in right upper, middle and lower lobe pulmonary arteries as well as segmental PE in the branches of the lingula. The CT also noted dense left basilar airspace consolidation. Patient presently reports that the nausea, PATRICIO and congestion have largely resolved. He has not had a fever for over two weeks. He has no chest pain or syncope. In the ER he is afebrile, HD stable. Blood pressure has been 119-158 / 80-106, stable respiratory status with saturations ranging 90-94% on room air. ER Course: Heparin bolus and drip ordered - not yet initiated Ceftriaxone 2gm IV - not yet given Admission Exam Per Admitting Provider General: patient resting comfortably, NAD, non-toxic in appearance, AA&O x 4 Skin: warm, dry, intact, no rashes or lesions HEENT: NC/AT, PERRL, EOMI, anicteric sclera, conjunctiva without injection, external ear normal to inspection and nontender, nares patent, moist mucus membranes, dentition intact, no oropharyngeal lesions, neck supple, trachea midline, no LAD, no thyromegaly, no JVD Heart: +S1/S2, regular, no m/r/g Lungs: equal air entry bilaterally, coarse breath sounds anteriorly with diminished in left base Abd: +BS, soft, NT/ND, no masses/organomegaly/ascites Ext: warm, 2+ pulses in UE/LE bilaterally, no clubbing/cyanosis or edema Neuro: nonfocal, patient AA&O x 4, speech intact, no facial droop, moving all extremities on command with equal strength 5/5 Principal Diagnosis PE Discharge Exam Constitutional: well-appearing, no acute distress HEENT: NCAT, no conjunctival injection CV: regular rhythm, no murmur appreciated, extremities well-perfused, no LE edema Resp: Decreased breath sounds of left lower lobe GI: soft, nondistended, nontender, BS normoactive MSK: no gross deformities appreciated Skin: warm, dry, no rash appreciated Neuro: alert, oriented, no focal neurologic deficit appreciated Discharge Data Allergies Allergy/AdvReac Type Severity Reaction Status Date / Time Penicillins AdvReac Intermediate DIARRHEA, Verified 04/23/22 20:18 NAUSEA/VOMITING Consultations 04/24/22 15:36 Consult Rheumatology Routine Ordered Studies 04/25/22 13:26 US venous doppler LE Routine Laboratory Results WBC 6.05 K/ul (4.8-10.8) 04/25/22 07:38 RBC 4.68 M/uL (4.70-6.10) L 04/25/22 07:38 Hgb 13.8 g/dl (14.0-18.0) L 04/25/22 07:38 Hct 42.7 % (42.0-52.0) 04/25/22 07:38 MCV 91.2 fL (80.0-100.0) 04/25/22 07:38 MCH 29.5 pg (25.0-34.0) 04/25/22 07:38 MCHC 32.3 g/dL (32.0-36.0) 04/25/22 07:38 RDW Std Deviation 44.4 fL (36.4-46.3) 04/25/22 07:38 RDW Coeff of Jenna 13.2 % (11.5-14.5) 04/25/22 07:38 Plt Count 210 K/uL (130-400) 04/25/22 07:38 MPV 9.0 fL (9.4-12.4) L 04/25/22 07:38 Immature Gran % (Auto) 1.8 % 04/25/22 07:38 Neut % (Auto) 61.4 % 04/25/22 07:38 Lymph % (Auto) 26.0 % 04/25/22 07:38 Wilkinson % (Auto) 9.8 % 04/25/22 07:38 Eos % (Auto) 0.5 % 04/25/22 07:38 Baso % (Auto) 0.5 % 04/25/22 07:38 Neut # (Auto) 3.72 K/uL (1.40-6.50) 04/25/22 07:38 Lymph # (Auto) 1.57 K/uL (1.2-3.4) 04/25/22 07:38 Wilkinson # (Auto) 0.59 K/uL (0.11-0.59) 04/25/22 07:38 Eos # (Auto) 0.03 K/uL (0-0.50) 04/25/22 07:38 Baso # (Auto) 0.03 K/uL (0-0.2) 04/25/22 07:38 Immature Gran # (Auto) 0.11 K/uL (0.01-0.20) 04/25/22 07:38 PT 10.3 Seconds (9.0-12.0) 04/23/22 17:29 INR 1.0 (0.9-1.1) 04/23/22 17:29 APTT 32.8 Seconds (21.0-31.0) H 04/25/22 07:38 PTT Ratio 1.2 04/25/22 07:38 Sodium 140 mmol/L (136-145) 04/25/22 07:38 Potassium 3.8 mmol/L (3.5-5.1) 04/25/22 07:38 Chloride 105 mmol/L (98-107) 04/25/22 07:38 Carbon Dioxide 30 mmol/L (21-32) 04/25/22 07:38 Anion Gap 5 (3-11) 04/25/22 07:38 BUN 20 mg/dl (6-23) 04/25/22 07:38 Creatinine 1.12 mg/dl (0.6-1.4) 04/25/22 07:38 Est Cr Clr Drug Dosing 87.0 ml/min 04/25/22 07:38 Est GFR ( Amer) 84.1 ml/min 04/25/22 07:38 Est GFR (Non-Af Amer) 72.5 ml/min 04/25/22 07:38 BUN/Creatinine Ratio 17.9 (10-20) 04/25/22 07:38 Glucose 79 mg/dl (70-99(Fasting)) 04/25/22 07:38 Calcium 9.2 mg/dl (8.5-10.1) 04/25/22 07:38 Phosphorus 3.0 mg/dl (2.5-4.9) 04/23/22 17:29 Magnesium 2.2 mg/dl (1.7-2.4) 04/23/22 17:29 Total Bilirubin 0.7 mg/dl (0.2-1.0) 04/25/22 07:38 AST 15 U/L (13-39) 04/25/22 07:38 ALT 22 U/L (7-52) 04/25/22 07:38 Alkaline Phosphatase 48 U/L (34-104) 04/25/22 07:38 Troponin I High Sens 10.0 pg/ml (0-20) 04/23/22 17:29 Total Protein 7.0 gm/dl (6.0-8.3) 04/25/22 07:38 Albumin 3.6 gm/dl (3.4-5.0) 04/25/22 07:38 Globulin 3.4 gm/dl (2.5-4.0) 04/25/22 07:38 Albumin/Globulin Ratio 1.1 (0.9-2) 04/25/22 07:38 Lipase 69 U/L (11-82) 04/23/22 17:29 SARS-CoV-2 (PCR) NEGATIVE (Negative) 04/23/22 Unknown Influenza Type A (PCR) Negative (Neg) 04/23/22 Unknown Influenza Type B (PCR) Negative (Neg) 04/23/22 Unknown RSV (RT-PCR) Negative (Neg) 04/23/22 Unknown Impressions Chest X-Ray 04/23/22 16:35 XR chest 1V portable HISTORY: Chest pain, nonspecific COMPARISON: Chest CTA 04/23/2022. FINDINGS: No pneumothorax. No pleural effusions. The cardiac silhouette is normal in size. There are patchy bibasilar airspace opacities again noted. The upper lung zones are clear. No evidence for pulmonary edema. IMPRESSION: No change in the patchy bibasilar airspace opacities. This could be due to the patient's known pulmonary emboli or a pneumonia. ACT 112: Negative or not required by law. Electronically signed by: Juan David Phillip M.D. 04/23/2022 6:41 PM Venous Doppler Study 04/25/22 13:26 BILATERAL LOWER EXTREMITY VENOUS DOPPLER CLINICAL HISTORY: Pulmonary emboli. Evaluate for deep venous thrombus. COMPARISON STUDY: No previous studies for comparison. TECHNIQUE: Sonography of the deep venous system of the bilateral lower extremities was performed. Compression and augmentation were evaluated. FINDINGS: The bilateral common femoral, superficial femoral and popliteal veins were compressible. Augmentation was normal. Flow was shown within the deep calf vessels. IMPRESSION: No evidence of deep venous thrombus within the bilateral lower extremities. ACT 112: Negative or not required by law. Electronically signed by: Karl Ferrera M.D. 04/25/2022 11:05 AM Hospital Course (1) Pulmonary emboli: Chnio Moulton is a 56yo male with history of HTN presenting with extensive segmental and subsegmental PE in the right upper, middle and lower lobe pulmonary arteries and segmental PEs in the lingula. Patient presently HD stable, adequate oxygenation on room air. PESI score = 67 - Class II, Low risk. Normal shock index. Hemodynamically stable throughout admission. -Echo with grade I diastolic dysfunction, no signs of right heart strain -Transition from heparin drip to Eliquis - No clear provoking factors. Some concern for underlying vasculitis due to constellation of recent symptoms. Rheumatology consulted and felt vasculitis was less likely - Hypercoagulability labs ordered and pending. Duplex US of LE negative Plan: Continue Eliquis 10mg BID for a total of 7 days and then transition to 5mg BID. No clear provoking factor. (2) Pneumonia: Patient with dense LLL consolidation concerning for PNA - no PE at that locat ion. He is presently afebrile. Mild leukocytosis - patient has been on Prednisone, however. No recent hospitalizations. -Ceftriaxone 2gm IV daily; will transition to cefpodoxime in addition to azithromycin (3) Hypertension: Blood pressure well controlled -Continue Amlodipine and HCTZ upon discharge Total Time Total Time Spent Total Time Spent (In Minutes): 35 Discharge Plan Discharge Items Patient Disposition: Home - Self-Care Reason For Visit: PULMONARY EMBOLI Discharge Diagnosis: Pulmonary embolism Activity: Per Instructions section Non-emergency contact: Primary Care Provider Call non-emergency contact if: you have any medication questions and your symptoms worsen Follow-up/Referrals: Ruy Dye MD [Primary Care Provider] - 05/02/22 2:30 pm Diet: Regular Addtl Attending Provider Instructions: You were admitted to the hospital for a pulmonary embolism. There is not a clear cause for your PE. We did do labs for hypercoagulability, but they will take about a week to come back. We start you on a medication called Eliquis. For the next 6 days you should take 10mg (2 tabs) twice a day with your next dose being this evening. Starting in the evening on 05/01 you should begin taking 5mg twice a day. We also treated you for a pneumonia. We should take 3 more days of azithromycin, with you next dose being this evening. We also started you on cefpodoxime, you should take this twice a day for 5 more days, starting tonight. Please finish your prednisone taper as per your primary care doctor. A discharge summary will be sent to your primary care physician to ensure continuity of care. Please bring this discharge summary with you to your next office appointment so that your provider can review it at that time. Follow-up appointments: Make a follow-up appointment with your PCP within the next week. It is very important that you follow up with them shortly after discharge from the hospital. Medications: Your medication list has been reviewed and reconciled upon discharge to ensure accuracy and continuity of care. An updated list of all your medications is included with your hospital discharge paperwork. Please review this list closely, and make note of any changes. CONTACT YOUR PRIMARY CARE PROVIDER/ Go to the ED if you experience any of the following: Chest Pain Worsening shortness of breath Difficulty following your treatment plan, or difficulty taking medications Pending Studies at Discharge: No Stand-Alone Forms: My [employer], Smoking Cessation Medications and DC Order Prescriptions: New Eliquis 5 mg (74 tabs) tablets,dose pack 5 mg PO BID Qty: 74 0RF Rx Instructions: For the next 6 days 10mg (2 tabs) twice a day. Starting in the evening on 05/01 start taking 5mg twice a day. cefpodoxime 200 mg tablet 200 mg PO BID 5 Days Qty: 10 0RF Rx Instructions: must administer with a meal/food azithromycin [Zithromax] 250 mg tablet 250 mg PO DAILY 3 Days Qty: 3 0RF Continued amlodipine 10 mg tablet 10 mg PO QAM hydrochlorothiazide 12.5 mg tablet 12.5 mg PO QAM prednisone 10 mg tablet 0 mg PO QAM Rx Instructions: PER PT "WAS TAPED DOWN TO 20 MG--SEEN THIS AM, TOLD TO INCREASE TO 40 MG DAILY". acetaminophen [Tylenol Extra Strength] 500 mg Tablet 1,000 mg PO DIRECTED PRN (Reason: Pain) ibuprofen 200 mg Tablet 600 mg PO DIRECTED PRN (Reason: Pain) Trelegy Ellipta 200-62.5-25 mcg Blister With Device 1 inh INHALATION DAILY Rx Instructions: STARTED 04/23/22. Discontinued azithromycin 250 mg tablet 250 mg PO DAILY MDD 2 Rx Instructions: STARTED 04/23/22 X 5 DAYS. 250 mg PO Two pills today pill daily for 4 more days.; Discharge Orders: Discharge Order (Routine); Ordered 04/25/22 Ordered By: Amee Guillermo Admission Data Admit Date/Time: 04/23/22 19:53 Attending Provider: Sonny Del Cid Admit Provider: Yvonne Montgomery Primary Care Provider: Ruy Dye Other Providers: Matt Sebastian Other Interventions: Discharge Summary Assessment (RN) Last Done: 04/25/22 12:46 Supervising Physician Co-Signing Physician Notes Attending attestation Pt seen and examined in concert with Dr. Guillermo. In agreement with the documented findings as noted in the resident documentation with any exceptions or additions as noted here. Primary complaint of chronic bilateral aching pain of the lower back c/w postural MSK pain without red flags. Reports no SOB, palpitations, chest pain, lightheadedness. On examination, S1/S2 nl RRR no MCG. Decreased breath sounds of the left lower lung manjarrez c/w consolidation on imaging. Abd NT/ND BS+ve Pulmonary emboli, multiple subsegmental - echocardiogram reviewed - Apixaban and follow up present lab evaluation. Rheumatology consultation appreciated for concern of inflammatory vasculitis. Pneumonia in the setting of PE - Complete course abx as noted. Else see resident documentation as noted. Total attending physician time spent with this patient's care on the day of discharge: 35 minutes. Resident Activity Tracking Resident Involvement: Resident Care Provided Care Provided: Adult [facility]
[2022-04-25] MEDS: amLODIPine BESYLATE 5 MG TAB PO SCH (07:25)
[2022-04-25] MEDS: APIXABAN 5 MG TABLET PO SCH (07:26)
[2022-04-25] MEDS: predniSONE 10 MG TABLET PO SCH (07:26)
[2022-04-25 08:39] LABS: Basophils # (auto) 0.03 K/uL (0-0.2); Basophils % (auto) 0.5 %; Eosinophils # (auto) 0.03 K/uL (0-0.50); Eosinophils % (auto) 0.5 %; Hematocrit (blood only) 42.7 % (42.0-52.0); Hemoglobin 13.8 g/dl (14.0-18.0); Immature Granulocytes # (auto) 0.11 K/uL (0.01-0.20); Immature Granulocytes % (auto) 1.8 %; Lymphocytes # (auto) 1.57 K/uL (1.2-3.4); Mean Corpuscular Hemoglobin 29.5 pg (25.0-34.0); Mean Corpuscular Hgb Conc 32.3 g/dL (32.0-36.0); Mean Corpuscular Volume 91.2 fL (80.0-100.0); Monocytes # (auto) 0.59 K/uL (0.11-0.59); Monocytes % (auto) 9.8 %; Neutrophils # (auto) 3.72 K/uL (1.40-6.50); Neutrophils % (auto) 61.4 %; Platelet Count 210 K/uL (130-400); RDW Coefficient of Variation 13.2 % (11.5-14.5); RDW Standard Deviation 44.4 fL (36.4-46.3); Red Blood Count 4.68 M/uL (4.70-6.10); White Blood Count 6.05 K/ul (4.8-10.8)
[2022-04-25 09:03] LABS: Albumin Globulin Ratio 1.1 (0.9-2); Albumin Level 3.6 gm/dl (3.4-5.0); BUN Creatinine Ratio 17.9 (10-20); Bilirubin,Total 0.7 mg/dl (0.2-1.0); Calcium 9.2 mg/dl (8.5-10.1); Est GFR (African American) 84.1 ml/min; Est GFR (Non-African American) 72.5 ml/min; Globulin 3.4 gm/dl (2.5-4.0); Potassium 3.8 mmol/L (3.5-5.1)
[2022-04-25 09:07] LABS: Partial Thromboplastin Ratio 1.2; Partial Thromboplastin Time 32.8 Seconds (21.0-31.0)
--- NOTE | 2022-04-25 11:07 | Ultrasound Report ---
BILATERAL LOWER EXTREMITY VENOUS DOPPLER CLINICAL HISTORY: Pulmonary emboli. Evaluate for deep venous thrombus. COMPARISON STUDY: No previous studies for comparison. TECHNIQUE: Sonography of the deep venous system of the bilateral lower extremities was performed. Co mpression and augmentation were evaluated. FINDINGS: The bilateral common femoral, superficial femoral and popliteal veins were compressible. A ugmentation was normal. Flow was shown within the deep calf vessels. IMPRESSION: No evidence of deep venous thrombus within the bilateral lower extremities. ACT 112: Negative or not required by law. Electronically signed by: Karl Ferrera M.D. 04/25/2022 11:05 AM
[2022-05-02 15:51] LABS: Factor 5 Mutation NEGATIVE
== END 2022-04-25 13:05 | disposition home or self-care (01) | DRG 175 ==
LOC: ED 16:20 → 2W 19:53 → SUATTDRO 19:53 → 2W 21:43